=== PATIENT | female | born 1960 | race Caucasian/White ===

== ENCOUNTER 2024-02-03 11:47 | Outpatient (AMB) | payer BC, SELFPAY ==
--- NOTE | 2024-02-03 11:49 | MHC.OFFWIV ---
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 Started yesterday. 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 She is able to ambulate fairly well but does have pain along the lateral aspect of the foot, and has noticed some bruising and swelling this morning, prompting her to present to care. She does have a history of neuropathy in both feet bilaterally, and takes tramadol-acetaminophen as needed as well as gabapentin 600 mg 3 times a day. She denies any increased sensation changes or tingling in the affected foot. [facility] Social History Patient Tobacco Use Status: Former Tobacco user Review of Systems Const Reports as per HPI, Denies body aches, Denies chills, Denies fatigue and Denies fever(s) Card Denies leg edema and Denies dyspnea Resp Denies dyspnea Musc Reports as per HPI Endo Denies fatigue Physical Exam Vital Signs: Last Vital Signs Temp 97.9 F 02/03/24 11:50 Pulse 75 02/03/24 11:50 BP 106/68 02/03/24 11:50 Pulse Ox 97 02/03/24 11:50 Oxygen Delivery Method Room Air 02/03/24 11:50 BMI result Body Mass Index 19.4 Const General: cooperative, healthy appearing and no acute distress Resp Effort & Inspection: normal respiratory effort Extrem Other: Mild edema and significant ecchymosis at lateral aspect of right foot, extending into the dorsal foot bed and distal metatarsal spaces; moderate tenderness to palpation over the 5th metatarsal. No medial or lateral malleolar tenderness, full active range of motion of ankle, ambulating favoring right foot but bearing weight bilaterally. General: Yes full ROM and Yes normal exam except as noted Assessment & Plan Assessment & Plan (1) Injury of right foot, initial encounter: Code(s): S99.921A - Unspecified injury of right foot, initial encounter Plan: Suspect 5th metatarsal fracture which is confirmed in office with x-ray, patient encouraged to use [id number] Tylenol or ibuprofen. Recommended reaching out to PCP if increased tramadol prescription is needed. Patient reports she has already seen by [facility] for other conditions, and will reach out, however I have placed a referral from our office today. (2) Fracture of fifth metatarsal bone of right foot: Code(s): S92.351A - Displaced fracture of fifth metatarsal bone, right foot, initial encounter for closed fracture Plan: see above Orders: Orders XR foot RT min 3V Today S99.921A - Unspecified injury of right foot, initial encounter Referrals Orthopedics Referral S92.351A - Displaced fracture of fifth metatarsal bone, right foot, initial encounter for closed fracture Coding Level of Care Code New Pt Level 4 (26453) Diagnoses Injury of right foot, initial encounter S99.921A Fracture of fifth metatarsal bone of right foot S92.351A
--- OUTSIDE RECORDS SUMMARY | 2024-02-03 11:49 | XMS_ITS | Continuity of Care Document ---
Author Organization [facility] Address [address] [place] [address]- Care Team Providers Care Inclusion Intern Name Role Phone Joseph LINCOLN, Faisal Primary Care Physician Encounter [facility] ACCT R [id number] Date(s): 05/21/22 - 06/20/22 [facility] [address] [place] [address]- Attending Physician: Reinaldo Garcia Admitting Physician: Reinaldo Garcia Referring Physician: Reinaldo Garcia Allergies, Adverse Reactions, Alerts No Known Medication Allergies Medications atenolol 25 mg oral tablet 1 tablet = 25 mg, By Mouth, Daily, 0 Refills, Maintenance, 03/24/14 16:52:19 Start Date: 03/24/14 Status: Ordered Calcium 600+D oral tablet See Instructions, 1 tablet By Mouth daily, 0 Refills, Maintenance, 04/28/15 16:43:42 Start Date: 04/28/15 Status: Ordered diazepam 2 mg oral tablet 2 tablet = 4 mg, By Mouth, Daily at bedtime, 0 Refills, Maintenance, 03/24/14 16:53:02 Start Date: 03/24/14 Status: Ordered famotidine 10 mg oral tablet 1 tablet = 10 mg, By Mouth, Once, 0 Refills, Maintenance, 05/21/22 12:40:00 EST, Partial fill upon patient request if the prescription is for a schedule II opioid drug. Start Date: 05/21/22 Status: Ordered gabapentin 600 mg oral tablet 1 tablet = 600 mg, By Mouth, 4 times a day, 0 Refills, Maintenance, 03/24/14 16:53:15 Start Date: 03/24/14 Status: Ordered Multivitamin Tablet 1 tablet, By Mouth, Daily, # 30 tablet, 0 Refills, Maintenance, 04/28/15 16:43:32, Tablet Start Date: 04/28/15 Status: Ordered nortriptyline 25 mg oral capsule 25 mg, 1, capsule, By Mouth, 3 times a day, # 270 capsule, Refills 0, Maintenance, 09/03/17 8:58:24EDT Start Date: 09/03/17 Status: Ordered nortriptyline 50 mg oral capsule 1 capsule = 50 mg, By Mouth, Daily, 0 Refills, Maintenance, 03/24/14 16:52:51 Start Date: 03/24/14 Status: Ordered Performix P4 Performix P4, See Instructions, # 180 Gm, Refills 1, Tot. Refills 1, Maintenance, Diclofenac 5% Baclofen 2% Cyclobenzaprine 2% Tnthckwfee87% Bupivicaine 2% in Liposomal cream, 05/23/22 8:48:00 EST, Compound Start Date: 05/23/22 Status: Ordered Prolia = 60 mg, Subcutaneous Infusion, Every 6 months, 0 Refills, Maintenance, 05/21/22 12:59:00 EST, Partial fill upon patient request if the prescription is for a schedule II opioid drug. Start Date: 05/21/22 Status: Ordered PROzac 20 mg oral capsule 20 mg, 1, capsule, By Mouth, Daily, # 30 capsule, Refills 0, Maintenance, 05/21/22 12:52:00 EST, Partial fill upon patient request if the prescription is for a schedule II opioid drug. Start Date: 05/21/22 Status: Ordered Synthroid 0.1 mg oral tablet 1 tablet = 100 mcg, By Mouth, Daily, 0 Refills, Maintenance, 03/24/14 16:52:31 Start Date: 03/24/14 Status: Ordered tramadol 50 mg oral tablet 1 tablet = 50 mg, By Mouth, Every 4 hours, 0 Refills, Maintenance, 04/11/14 14:17:08 Start Date: 04/11/14 Status: Ordered Vitamin D3 1000 intl units oral tablet 1 tablet = 1,000 International_Units, By Mouth, Daily, # 30 tablet, 0 Refills, Maintenance, 04/28/15 16:43:21, Tablet Start Date: 04/28/15 Status: Ordered Wellbutrin XL 300 mg/24 hours oral tablet, extended release 1 tablet = 300 mg, By Mouth, Daily, # 30 tablet, 0 Refills, Maintenance, 05/21/22 12:52:00 EST, ER Tablet, Partial fill upon patient request if the prescription is for a schedule II opioid drug. Start Date: 05/21/22 Status: Ordered Social History Social History Type Response Smoking Status Former smoker; Tobac co user in household: No; Type: Cigarettes; Other: pt states she quit smoking 17 years ago; Stopped at age: 37; entered on: 05/02/15 Sex Patient Care team information Care Team Personnel Name: Cece Holden RN Position: [facility] RN Member Role: Primary Care Nurse Name: Faisal Ruiz MD Position: [facility] Physician (General Medicine) Member Role: PCP Address: Address: [address] [place] [address] [place] [address]- Care Team Related Persons Name: ARTIS PEÑALOZA Address: home [address] [place], [place] [id number]
--- OUTSIDE RECORDS SUMMARY | 2024-02-03 11:49 | XMS_ITS | Continuity of Care Document ---
Author Organization [facility] Address [address] [place] [address]- Care Team Providers Care Pre Press Manager Name Role Phone Joseph LINCOLN, Faisal Primary Care Physician [phone] Encounter [facility] Date(s): 12/21/20 - 12/21/[address] [address]- Discharge Disposition: A-D/C Home Attending Physician: Shamar Mehta DO Admitting Physician: Shamar Mehta DO Referring Physician: Not on Staff, Referring MD Allergies, Adverse Reactions, Alerts No Known Medication Allergies Medications acetaminophen-oxyCODONE 325 mg-5 mg oral tablet 1, tablet, By Mouth, Every 6 hours, PRN, for 3 days, # 12 tablet, Refills 0, Tot. Refills 0, Acute,as needed for pain, 12/24/20 17:46:00 EDT, 12/21/20 17:46:00 EDT, Route to Pharmacy Electronically,[facility]t, Partial fill upon patient r... Start Date: 12/21/20 Stop Date: 12/24/20 Status: Ordered atenolol 25 mg oral tablet 1 tablet [...] 03/24/14 16:53:02 Start Date: 03/24/14 Status: Ordered gabapentin 600 mg oral tablet [...] 03/24/14 16:52:51 Start Date: 03/24/14 Status: Ordered Synthroid 0.1 mg oral tablet [...] 16:43:21, Tablet Start Date: 04/28/15 Status: Ordered Zantac 150 oral tablet 1 tablet = 150 mg, By Mouth, 2 times a day, # 180 tablet, 0 Refills, Maintenance, 09/03/17 8:58:34 EDT, Tablet Start Date: 09/03/17 Status: Ordered Results Radiology Reports * Exam Date Time Procedure Performing Provider Status 12/21/20 5:55 PM Shoulder Min 2 Views Left Anjana Worleyique; Auth (Verified) Notes: (Shoulder Min 2 Views Left) Reason For Exam: with Pain;Trauma RESULT: Shoulder Min 2 Views Left Shoulder Min 2 Views Left, views Hx of Present Illness: Pt tripped and fell in kitchen at 1100 this am. Pt has obvious swelling to left uper arm; Reason: Trauma; with Pain; Clinical Question(s): Fracture COMPARISON: None. FINDINGS: Comminuted fracture of the proximal humerus with comminution. Probable left greater tuberosity fracture. Multiple left-sided rib fractures noted. These are age-indeterminate. Normal AC joint and portions of the clavicle included on the exam. No calcification of the rotator cuff. IMPRESSION: Comminuted left proximal humeral fracture. Probable left greater tuberosity fracture. No dislocation. Left-sided rib fractures noted, age-indeterminate. WSN: [id number] Ordering Physician: Shamar Mehta Dictated By: Kenneth Adair MD Dictated Date/Time: 12/21/20 6:02 pm Reviewed By: Kenneth Adair MD Signed By: Kenneth Adair MD Signed Date/Time: 12/21/20 6:02 pm Transcribed By: RAINER Transcribed Date/Time: 12/21/20 5:57 pm * Exam Date Time Procedure Performing Provider Status 12/21/20 4:17 PM Humerus Min 2 Views Left Dionte Worley; Charbel (Verified) Notes: (Humerus Min 2 Views Left) Reason For Exam: Trauma RESULT: Humerus Min 2 Views Left Humerus Min 2 Views Left CLINICAL INDICATION: Hx of Present Illness: Pt tripped and fell in kitchen at 1100 this am. Pt has obvious swelling to left uper arm; Reason: Trauma; Clinical Question(s): Fracture COMPARISONS: None TECHNIQUE: AP and lateral views of the left humerus were obtained. FINDINGS: There is an extensively comminuted fracture of the proximal left humerus including a displaced surgical neck fracture, a greater tuberosity fracture of the humeral head, and a separate additional fracture extending through the proximal humeral shaft just beyond the surgical neck. The humeral head remains articulated with the glenoid. No AC joint widening. Articulation at the elbow appears anatomic. No retained foreign body. IMPRESSION: Extensively comminuted proximal humeral fracture as discussed above. No shoulder dislocation is apparent. Distal humerus and elbow appear intact. A Document Only message has been documented in the [employer] system Shahnaz Moralez MD on 12/21/2020 4:20 PM, Message ID [id number]. WSN: [id number] Ordering Physician: Gene Moralez Dictated By: Bob Rome MD Dictated Date/Time: 12/21/20 4:20 pm Reviewed By: Bob Rome MD Signed By: Bob Rome MD Signed Date/Time: 12/21/20 4:20 pm Transcribed By: RAINER Transcribed Date/Time: 12/21/20 4:18 pm Vital Signs Most recent to oldest [Reference Range]: 1 2 Height 173 cm (12/21/20 6:07 PM) 173 cm (12/21/20 3:47 PM) Weight 57.2 kg (12/21/20 3:47 PM) Oxygen Saturation [94-100 %] 100 % (12/21/20 6:07 PM) 98 % (12/21/20 3:47 PM) Pulse Rate [55-90 bpm] 68 bpm (12/21/20 6:07 PM) 82 bpm (12/21/20 3:47 PM) Blood Pressure [90-138/55-84 mm Hg] 113/ 77mm Hg (12/21/20 6:07 PM) 110/71mm Hg (12/21/20 3:47 PM) Respiratory Rate [16-30 br/min] 16 br/mi n (12/21/20 6:07 PM) 16 br/min (12/21/20 3:47 PM) Temperature [96.8-100.4 DegF] 98.8 DegF (12/21/20 3:47 PM) Mode of Delivery (Oxygen) Room air (12/21/20 6:07 PM) Room air (12/21/20 3:47 PM) Blood pressure sites Arm, right (12/21/20 6:07 PM) Arm, right (12/21/20 3:47 PM) Temperature Route Temporal (12/21/20 3:47 PM) Dry Weight 57.2 kg (12/21/20 3:47 PM) Weight Obtained Via Standing scale (12/21/20 3:47 PM) Dry Weight Obtained Via Standing scale (12/21/20 3:47 PM) Social History Social History Type Response Smoking Status Former smoker; Tobac co user in household: No; Type: Cigarettes; Other: pt states she quit smoking 17 years ago; Stopped at age: 37; entered on: 05/02/15 Sex
[2024-02-03 11:50] VITALS: BP 106/68; PULSE 75; TEMP 36.6; O2SAT 97; BMI 19.4
--- OUTSIDE RECORDS SUMMARY | 2024-02-03 11:50 | XMS_ITS | Continuity of Care Document ---
Author Organization [facility] ter Address [address] [place] [address]- Care Team Providers Care Concrete Craftsman Name Role Phone Faisal Ruiz MD Primary Care Physician [phone] Encounter 12/16/23 - 12/17/[address] [address] Attending Physician: Not on Staff, Attending MD Referring Physician: Not on Staff, Referring MD Allergies, Adverse Reactions, Alerts No Known Medication Allergies Medications atenolol 25 mg oral tablet 1 tablet = 25 mg, By Mouth, Daily, 0 Refills, Maintenance, 03/24/14 16:52:19 Start Date: 03/24/14 Status: Ordered Calcium 600+D oral tablet See Instructions, 1 tablet By Mouth daily, 0 Refills, Maintenance, 04/28/15 16:43:42 Start Date: 04/28/15 Status: Ordered CeleBREX 200 mg oral capsule 1 capsule = 200 mg, By Mouth, Daily, # 90 capsule, 0 Refills, Maintenance, 12/13/22 15:19:00 EDT, Capsule, Partial fill upon patient request if the prescription is for a schedule II opioid drug. Start Date: 12/13/22 Status: Ordered diazepam 2 mg oral tablet [...] drug. Start Date: 05/21/22 Status: Ordered gabapentin 300 mg oral capsule 300 mg, 1, capsule, By Mouth, 2 times a day, Refills 0, Maintenance, 08/06/22 14:19:00 EST, Partialfill upon patient request if the prescription is for a schedule II opioid drug. Start Date: 08/06/22 Status: Ordered gabapentin 600 mg oral tablet 1 tablet = 600 mg, By Mouth, 2 times a day, 0 Refills, Maintenance, 03/24/14 16:53:15 EDT Start Date: 03/24/14 Status: Ordered Multivitamin Tablet 1 tablet, By Mouth, Daily, # 30 tablet, 0 Refills, Maintenance, 04/28/15 16:43:32, Tablet Start Date: 04/28/15 Status: Ordered Nortriptyline = 35 mg, By Mouth, Daily at bedtime, 0 Refills, Maintenance, 08/06/22 14:18:00 EST, Partial fill upon patient request if the prescription is for a schedule II opioid drug. Start Date: 08/06/22 Status: Ordered Performix P2 Performix P2, See Instructions, # 180 Gm, Refills 1, Tot. Refills 1, Maintenance, Baclofen 2% Gabapentin 10% Imipramine 3% Nifedipine 2% Bupivicaine 2% in Liposomal cream, 09/24/22 13:51:00 EDT, Compound Start Date: 09/24/22 Status: Ordered Performix P4 Performix P4, See Instructions, # 180 Gm, Refills 1, Tot. Refills 1, Maintenance, Diclofenac 5% Baclofen 2% Cyclobenzaprine 2% Flwbnrnulr50% Bupivicaine 2% in Liposomal cream, 09/18/22 8:28:00 EDT, Compound, 09/18/22 Start Date: 09/18/22 Status: Ordered Prolia = 60 mg, Subcutaneous [...] 16:43:21, Tablet Start Date: 04/28/15 Status: Ordered Results Radiology Reports * Exam Date Time Procedure Performing Provider Status 12/16/23 7:13 PM MRI Breast Bilat W+W/O Contrast Auth (Verified) Notes: (MRI Breast Bilat W+W/O Contrast) Reason For Exam: Family History BR ca V16.3;Family History BR ca V16.3 RESULT: MRI Breast Bilat W+W/O Contrast [facility] VISIT NUMBER :[id number] Patient Name: Bhavna Peñaloza Date of : 1960 Date of Exam: 12-16-2023 Referring Physician: Byron Owen [address] [place] [address] Exam: MR Breast Bilateral (C-/C+) W or WO CAD CPT 28898 Room Description: [facility] 1.5 HISTORY: 63 years old Female with Family History BR ca V16.3. TECHNIQUE: Imaging of both breasts is performed in a dedicated breast coil with axial 1.2 mm 3D gradient echo T1 weighted images, axial STIR weighted images, axial T2 weighted images, followed by axial 1.2 mm fat-saturated T1-weighted 3D gradient echo images before and four times after the IV administration of 12 cc of Dotarem contrast. 3D postprocessing performed on an independent workstation, including multiplanar maximum intensity projection images, subtraction images, and washout maps with computed-assisted diagnosis with Cody version 4.0 Build [id number]. COMPARISON: Breast MRI performed at [facility] performed on 10/11/2022. Targeted left breast ultrasound and performed on 05 15. Nondiagnostic images from left mammogram performed 11/27/2023. LAST MENSTRUAL PERIOD: Postmenopausal FINDINGS: Amount of fibroglandular tissue: There is heterogeneous fibroglandular tissue bilaterally. Amount of background parenchymal enhancement: There is moderate bilateral background parenchymal enhancement. RIGHT BREAST: There are scattered nonspecific foci of enhancement which limits the sensitivity of the study. There is no evidence of suspicious enhancement. No skin thickening. LEFT BREAST: There are scattered nonspecific foci of enhancement which limits the sensitivity of the study. There is no evidence of suspicious enhancement. No skin thickening. LYMPH NODES: No enlarged or otherwise abnormal axillary or internal mammary lymph nodes noted. INCIDENTAL FINDINGS: None. IMPRESSION: 1. No MRI evidence of malignancy. BI-RADS: 2 (Benign) Thank you for allowing me to participate in the care of this patient. Electronically Signed By: Radha Pablo MD Dictated By: Radha Pablo MD Dictated Date/Time: 12/17/23 2:07 pm Reviewed By: Radha Pablo MD Signed By: Radha Pablo MD Signed Date/Time: 12/17/23 2:07 pm Transcribed By: NELA Transcribed Date/Time: 12/17/23 2:07 pm Social History Social History Type Response Smoking Status Former smoker; Tobac co user in household: No; Type: Cigarettes; Other: pt states she quit smoking 17 years ago; Stopped at age: 37; entered on: 05/02/15 Sex Patient Care team information Care Team Personnel Name: Cece Holden RN Position: [facility] AMB Nurse Member Role: Primary Care Nurse Name: Faisal Ruiz MD Position: [facility] Physician - Endocrinology Member Role: PCP Address: Address: [address] [place] [address] [facility] [place] [address]- Care Team Related Persons Name: BYRON PEÑALOZA Address: home [address] [place] [address]
--- OUTSIDE RECORDS SUMMARY | 2024-02-03 11:50 | XMS_ITS | Continuity of Care Document ---
Author Organization [facility] Address [address] [place] [address]- Care Team Providers Care Rivet Sticker Name Role Phone Faisal Ruiz MD Primary Care Physician [phone] Encounter [facility] ACCT R [id number] Date(s): 12/13/22 - 01/12/23 [facility] [address] [place] [address]- Attending Physician: Reinaldo Garcia Admitting Physician: Reinaldo Garcia Referring Physician: AdmtrReinaldo Allergies, Adverse Reactions, Alerts No Known Medication [...] Maintenance, Diclofenac 5% Baclofen 2% Cyclobenzaprine 2% Rpjcbpropn80% Bupivicaine 2% in Liposomal cream, 09/18/22 8:28:00 [...] 16:43:21, Tablet Start Date: 04/28/15 Status: Ordered Social History Social History Type Response Smoking Status Former smoker; Tobac co user in household: No; Type: Cigarettes; Other: pt states she quit smoking 17 years ago; Stopped at age: 37; entered on: 05/02/15 Sex Patient Care team information Care Team Personnel Name: Faisal Ruiz MD Position: [facility] Physician - Endocrinology Member Role: PCP Address: Address: [address] [place] [address] [facility] [address] Care Team Related Persons Name: ARTIS PEÑALOZA Address: home [address] [place] [address]
--- OUTSIDE RECORDS SUMMARY | 2024-02-03 11:50 | XMS_ITS | Continuity of Care Document ---
Author Organization [facility] ter Address [address] [place] [address]- Care Team Providers Care It Solutions Architect Name Role Phone Faisal Ruiz MD Primary Care Physician [phone] Encounter [facility] Date(s): 04/02/23 - 05/18/[address] [address]- Attending Physician: Faisal Ruiz MD Admitting Physician: Faisal Ruiz MD Referring Physician: Faisal Ruiz MD Allergies, Adverse Reactions, Alerts No Known [...] Maintenance, Diclofenac 5% Baclofen 2% Cyclobenzaprine 2% Bgelvwazzf14% Bupivicaine 2% in Liposomal cream, 09/18/22 8:28:00 [...] at age: 37; entered on: 05/02/15 Sex Note * Event Display: Infusion History and Physical Authored Date: Patient Care team information Care Team Personnel Name: Cece Holden RN Position: [facility] SN RN Member Role: Primary Care Nurse Name: Faisal Ruiz MD Position: [facility] Physician - Endocrinology Member Role: PCP Address: Address: [address] [place] [address] [place] [address]- Care Team Related Persons Name: ARTIS PEÑALOZA Address: home [address] [place] [address]
--- OUTSIDE RECORDS SUMMARY | 2024-02-03 11:50 | XMS_ITS | Continuity of Care Document ---
Author Organization [facility] Address [address] [place] [address]- Care Team Providers Care Foot Tender Name Role Phone Joseph LINCOLN, Faisal Primary [id number] Date[facility] 04/04/22 - 05/04/[facility] [address] [place] [address]- Attending Physician: Reinaldo Garcia Admitting Physician: Reinaldo [...] EDT, Tablet Start Date: 09/03/17 Status: Ordered Social History Social History Type Response Smoking Status Former smoker; Tobac co user in household: No; Type: Cigarettes; Other: pt states she quit smoking 17 years ago; Stopped at age: 37; entered on: 05/02/15 Sex Patient Care team information Care Team Personnel Name: Ceec Holden RN Position: [facility] RN Member Role: Primary Care Nurse Name: Faisal Ruiz MD Position: [facility] Physician (General Medicine) Member Role: PCP Address: Address: [address] [place] [address] [facility] [address] Care Team Related Persons Name: ARTIS PEÑALOZA Address: home [address] [place] [id number]
--- OUTSIDE RECORDS SUMMARY | 2024-02-03 11:50 | XMS_ITS | Continuity of Care Document ---
Author Organization [facility] Address [address] [place] [address]- Care Team Providers Care Commercial Airline Pilot Name Role Phone Faisal Ruiz MD Primary Care Physician [place] [facility] [place] [id number] Date(s): 09/20/22 - 10/20/22 [facility] [address] [place] [address]- Allergies, Adverse Reactions, Alerts No Known Medication [...] Maintenance, Diclofenac 5% Baclofen 2% Cyclobenzaprine 2% Jrufuvbbae53% Bupivicaine 2% in Liposomal cream, 09/18/22 8:28:00 [...] Team Personnel Name: Faisal Ruiz MD Position: [facility] Physician (General Medicine) Member Role: PCP Address: Address: [address] [place] [address] [facility] [place] [address]- Care Team Related Persons Name: ARTIS PEÑALOZA Address: home [address] [place] [address]
--- OUTSIDE RECORDS SUMMARY | 2024-02-03 11:50 | XMS_ITS | Continuity of Care Document ---
Author Organization [facility] Address [address] [place] [id number]- Care Team Providers Care Programmer Engineering And Scientific Name Role Phone Faisal Ruiz MD Primary Care Physician [phone] [id number] Date(s): 05/17/21 - 06/16/[address] [id number] Attending Physician: Reinaldo Garcia Admitting Physician: Reinaldo Garcia Referring Physician: AdmReinaldo richmond Allergies, Adverse Reactions, Alerts No Known Medication [...]
--- OUTSIDE RECORDS SUMMARY | 2024-02-03 11:50 | XMS_ITS | Continuity of Care Document ---
Author Organization [facility] Address [address] [place] [address]- Care Team Providers Care It Applications Analyst Name Role Phone Joseph LINCOLN, Faisal Primary Care Physician [phone] [id number] Date[facility] 08/20/[facility] - 10[facility] [address] [place] [address]- Attending Physician: Gilbert Burnette MD Admitting Physician: Gilbert Burnette MD Allergies, Adverse Reactions, Alerts No Known [...] Maintenance, Diclofenac 5% Baclofen 2% Cyclobenzaprine 2% Dleuimnvyg34% Bupivicaine 2% in Liposomal cream, 09/18/22 8:28:00 [...] Team Personnel Name: Faisal Ruiz MD Position: [facility] Physician (General Medicine) Member Role: PCP Address: Address: [address] [place] [address] [facility] [address]- Care Team Related Persons Name: ARTIS PEÑALOZA Address: [address] [place] [address]
--- OUTSIDE RECORDS SUMMARY | 2024-02-03 11:50 | XMS_ITS | Continuity of Care Document ---
Author Organization [facility] Address [address] [place] [address]- Care Team Providers Care Relationship Manager Name Role Phone Joseph LINCOLN, Faisal Primary Care Physician [id number] Date(s): 08/20/22 - 10/09/22 [facility] [address] [place] [id number]- Attending Physician: Gilbert Burnette MD Admitting Physician: [...] Maintenance, Diclofenac 5% Baclofen 2% Cyclobenzaprine 2% Nzoqudkblu28% Bupivicaine 2% in Liposomal cream, 09/18/22 8:28:00 [...] Team Personnel Name: Faisal Ruiz MD Position: [facility] Physician (General Medicine) Member Role: PCP Address: Address: [address] [place] [address] [place] [address]- Care Team Related Persons Name: ARTIS PEÑALOZA Address: home [address] [place] [address]
== END 2024-02-03 13:05 | disposition home or self-care (01) ==
PROVIDERS: PCP Internal Medicine Endocrinology, Diabetes & Metabolism; Visit Provider Emergency Medicine
DX: S99.921A Unspecified injury of right foot, initial encounter (principal); S92.351A Displaced fracture of fifth metatarsal bone, right foot, initial encounter for closed fracture
CPT/HCPCS: 99204

== ENCOUNTER 2024-02-03 12:18 | Outpatient (REF) | payer BC, SELFPAY ==
--- NOTE | ~2024-02-03 | XR_ITS ---
EXAMINATION: XR FOOT, RIGHT CLINICAL INFORMATION: Rolled ankle off curb with tenderness 5th metatarsal region. COMPARISON: None available. TECHNIQUE: AP, lateral, and oblique views of the right foot. FINDINGS: There is a spiral fracture midshaft of the right 5th metatarsal with 1 mm of medial displacement distal fracture fragment. No dislocation is evident. There is some mild soft tissue swelling present. XR/XR foot RT min 3V IMPRESSION: Spiral fracture right 5th metatarsal. Electronically signed by: Danny Callahan MD 02/10/2024 09:47 AM EDT
--- NOTE | ~2024-02-03 | XR_ITS ---
EXAMINATION: XR ANKLE, RIGHT CLINICAL INFORMATION: Rolled ankle off curb with tenderness 5th metatarsal region. COMPARISON: None available. TECHNIQUE: AP, lateral, and mortise views of the right ankle. FINDINGS: There is no evidence of acute fracture or dislocation of the right ankle. Ankle mortise appears intact. No significant soft tissue swelling appreciated. No ankle effusion is seen. XR/XR ankle RT 2V IMPRESSION: No bony abnormality of the right ankle identified. Electronically signed by: Danny Callahan MD 02/10/2024 09:47 AM EDT
== END 2024-02-03 12:19 | disposition home or self-care (01) ==
LOC: HO.HMGCX 12:18
PROVIDERS: PCP Internal Medicine Endocrinology, Diabetes & Metabolism; Visit Provider Emergency Medicine
DX: S99.921A Unspecified injury of right foot, initial encounter (principal)
CPT/HCPCS: 73600; 73630